=== PATIENT | male | born 1970 | race Caucasian/White ===

== ENCOUNTER → 2024-01-09 10:19 | Outpatient (REF) | payer OTHER, SELFPAY | LOC: MRI 3T 10:19 | PROVIDERS: ATTENDING PHYSICIAN Specialist; FAMILY PHYSICIAN Internal Medicine | DX: C61 Malignant neoplasm of prostate (principal) | CPT/HCPCS: 72197; A9575 ==

== ENCOUNTER 2024-02-01 11:12 | Outpatient (RCR) | payer OTHER, SELFPAY | END 2024-02-01 23:59 | disposition home or self-care (01) | LOC: RPT 11:12 | PROVIDERS: ATTENDING PHYSICIAN Specialist; FAMILY PHYSICIAN Internal Medicine | DX: C61 Malignant neoplasm of prostate (principal); Z73.6 Limitation of activities due to disability | CPT/HCPCS: 97161; 97530 ==

== ENCOUNTER 2024-02-22 06:06 | Day surgery (SDC) | payer OTHER, SELFPAY ==
--- NOTE | 2024-02-07 12:07 | CM ---
Patient is scheduled for a Robotic Prostatectomy on 02/22/24. Spoke with patient prior to surgery via telephone to complete case management assessment and assess for discharge planning needs. Patient reports that he lives with his and two
children in a two story home. There are no steps to enter and a flight of steps to the second floor. He currently functions independently. He has no DME. He has had VN services through [facility] in the past. He has a prescription plan and uses [facility] in
[place].
PCP is Afshan Freed
Discussed discharge plans. Patient plans to return home at discharge. Discussed possible need for VN services and reviewed options. Patient states that if services are needed, he selects [facility]N.
[place] text sent to VN liaison, Desiree Turner, alerting her to surgery date and possible need for VN.
[2024-02-09 08:19] VITALS: BMI 32.9
[2024-02-09 08:59] LABS: Hematocrit 42.1 % (39.0-52.0); Hemoglobin 14.6 g/dL (13.0-18.0); Mean Corp Hgb Conc. 34.7 g/dL (33.0-37.0); Mean Corpuscular Hgb 30.1 pg (27.0-31.0); Mean Corpuscular Volume 86.8 fL (80.0-94.0); Mean Platelet Volume 10.5 fL (7.4-10.4); Platelet Count 229 10^3/uL (130-400); Red Blood Cell Count 4.85 10^6/uL (4.70-6.10); Red Cell Dist. Width 11.3 % (11.5-14.5); White Blood Cell Count 8.4 10^3/uL (4.8-10.8)
[2024-02-09 09:08] LABS: INR 0.95; PT 12.7 Sec (11.4-14.6)
[2024-02-09 09:09] LABS: APTT 25.4 Sec (23.4-35.0)
[2024-02-09 09:20] LABS: Urine Albumin Negative (Neg - Trace); Urine Bilirubin Negative (Negative); Urine Character Clear (Clear); Urine Color Yellow; Urine Glucose Negative (Negative); Urine Ketone Negative (Negative); Urine Leukocyte Negative (Negative); Urine Nitrite Negative (Negative); Urine Occult Blood Negative (Negative); Urine Urobilinogen Negative (Neg - 1+)
[2024-02-09 10:45] LABS: Blood Urea Nitrogen 21 mg/dl (9-20); Calcium 9.4 mg/dl (8.4-10.2); Carbon Dioxide 28 mmol/L (22-30); Chloride 103 mmol/L (98-107); Estimated Creatinine Clearance 118 ml/min; Glucose 85 mg/dl (70-99); Potassium 4.5 mmol/L (3.5-5.1); Sodium 138 mmol/L (135-145); eGFR > 60.00
[2024-02-22] VITALS (16 sets, daily range): BP systolic 107–149; BP diastolic 1–91; BMI 32.9
[2024-02-22] MEDS: NORMOSOL-R 1000 IV (06:42)
[2024-02-22] MEDS: NEOMYCIN ENEMA 1 BOTTLE RECTAL (06:43)
[2024-02-22 12:13] LABS: Hematocrit 42.2 % (39.0-52.0); Hemoglobin 14.5 g/dL (13.0-18.0)
[2024-02-22 12:36] LABS: Blood Urea Nitrogen 16 mg/dl (9-20); Calcium 8.4 mg/dl (8.4-10.2); Carbon Dioxide 23 mmol/L (22-30); Chloride 105 mmol/L (98-107); Estimated Creatinine Clearance 116 ml/min; Glucose 151 mg/dl (70-99); Potassium 4.7 mmol/L (3.5-5.1); Sodium 135 mmol/L (135-145); eGFR > 60.00
[2024-02-22] MEDS: TYLENOL 650 MG PO ×3 (13:18→23:13)
[2024-02-22] MEDS: COLACE PO (15:46)
[2024-02-22] MEDS: POLYSPORIN/DOUBLE ANTIBIOTIC TOPICAL (15:46)
--- NOTE | 2024-02-22 16:33 | PTCARENOTE ---
1515: Patient arrived to 2S. Full head to toe assessment completed. 5 incisions on abdomen. Patient on bedrest until 1800. Ac catheter in place. Call kidd within reach and bed in lowest position.
[2024-02-22] MEDS: TORADOL 15 MG IV ×2 (17:12→23:14)
[2024-02-22] MEDS: COLACE 100 MG PO (17:13)
[2024-02-22] MEDS: VALIUM INJECTION 5 MG IV (18:25)
[2024-02-22] MEDS: POLYSPORIN/DOUBLE ANTIBIOTIC 1 APPLIC TOPICAL (21:11)
[2024-02-23 03:41] VITALS: BP 120/68
[2024-02-23] MEDS: TORADOL 15 MG IV (05:53)
--- NOTE | 2024-02-23 06:02 | PTCARENOTE ---
Leg bag teaching reviewed before HS. Pt verbalizes understanding. Switched over to leg bag per orders, pt verbalizes understanding. Reports pain as tolerable. Thigh high SCDs removed at this time to accommodate leg bag. Plan of care ongoing.
--- NOTE | 2024-02-23 06:39 | W.PN.URO.CBU ---
Today's Communication / Plan
-
discharge
Assessment / Plan
-
stable
Diagnosis
-
Date of Service: February 23, 2024
-
Patient Diagnosis: prostate cancer s/p prostatectomy
Post Op Day: 1
Subjective
-
'pain has been great'
Objective
-
Vital Signs
Temp Pulse Resp BP Pulse Ox
98.1 F 69 16 120/68 97
02/23/24 03:41 02/23/24 03:41 02/23/24 03:41 02/23/24 03:41 02/23/24 03:41
Intake and Output
02/21/24 02/22/24 02/23/24
06:59 06:59 06:59
Intake Total 1360 / 1360
Output Total 2625 / 2625
Balance -1265 / -1265
Intake:
Oral fluids 960 / 960
IV fluids (Total) 400 / 400
Normosol 400 / 400
Output:
Urine, Ac 2625 / 2625
labs - pending
Physical Exam
-
General - well developed, well nourished, no acute distress
Chest - clear bilaterally
Abdomen - soft, no distention
Genitalia - Ac with yellow urine
Skin - warm & dry with no rash
Neuro - AOx3, no motor deficits
Extremities - no clubbing, no cyanosis, no edema
Dressings - clean, dry, intact
[2024-02-23 06:40] LABS: Hematocrit 37.6 % (39.0-52.0); Hemoglobin 12.9 g/dL (13.0-18.0); Mean Corp Hgb Conc. 34.3 g/dL (33.0-37.0); Mean Corpuscular Hgb 30.2 pg (27.0-31.0); Mean Corpuscular Volume 88.1 fL (80.0-94.0); Mean Platelet Volume 10.3 fL (7.4-10.4); Platelet Count 207 10^3/uL (130-400); Red Blood Cell Count 4.27 10^6/uL (4.70-6.10); Red Cell Dist. Width 11.4 % (11.5-14.5); White Blood Cell Count 9.4 10^3/uL (4.8-10.8)
[2024-02-23 07:06] LABS: Blood Urea Nitrogen 15 mg/dl (9-20); Calcium 8.9 mg/dl (8.4-10.2); Carbon Dioxide 28 mmol/L (22-30); Chloride 106 mmol/L (98-107); Estimated Creatinine Clearance 105 ml/min; Glucose 94 mg/dl (70-99); Potassium 4.4 mmol/L (3.5-5.1); Sodium 139 mmol/L (135-145); eGFR > 60.00
[2024-02-23 07:39] VITALS: BP 147/84
[2024-02-23] MEDS: COLACE 100 MG PO (09:02)
[2024-02-23] MEDS: TRICOR 48 MG PO (09:02)
[2024-02-23] MEDS: TYLENOL 650 MG PO (09:02)
[2024-02-23] MEDS: ORETIC 25 MG PO (09:04)
[2024-02-23] MEDS: POLYSPORIN/DOUBLE ANTIBIOTIC 1 APPLIC TOPICAL (09:04)
--- NOTE | 2024-02-23 10:02 | VNURNOTE ---
Home Health Liaison met with patient at 0900 to discuss [facility] nurse visits, schedule and homebound status. Patient is agreeable and understands that visits at home will be 2-3 x per week to assess and teach medical management and catheter care.
[facility] brochure provided with contact information. Patient is aware that [facility] will contact him for start of care in 1-2 days after discharge from .
[facility] referral completed in [facility].
--- NOTE | 2024-02-23 10:25 | CM ---
Reviewed the chart notes and spoke with the patient at the bedsides. The patient resides with his spouse in a two story home with no steps to enter. The patient reports no DME/VN/SNF in the past. The patient confirmed his pharmacy of choice is
the [facility] [address] [facility]. VN referral was sent previously through [facility] and was accepted. CM continues to be available to patient/family and is monitoring medical plan for needs at discharge.
Plan: Discharge to home today with VN services.
== END 2024-02-23 10:35 | disposition home or self-care (01) ==
LOC: SDS 06:06
PROVIDERS: ATTENDING PHYSICIAN Specialist; FAMILY PHYSICIAN Internal Medicine
DX: C61 Malignant neoplasm of prostate (principal)
CPT/HCPCS: 55866; 38571; 88305; 88307; 88309; 36415; 80048; 81003; 85014; 85018; 85027; 85610; 85730; 87070; 88344; 93005

== ENCOUNTER 2024-03-03 00:18 | Emergency (ER) | payer OTHER, SELFPAY ==
[2024-03-03 00:21] VITALS: BP 145/86; BMI 32.1
--- NOTE | 2024-03-03 01:14 | ED.GENMED ---
History of Present Illness
General
Chief Complaint: Male Genito-Urinary Symptoms
Source: patient and spouse
Time Seen by Provider: 03/03/24 00:39
Travel History
Have you had any contact with someone who has COVID-19?: No
Do you have any symptoms of coronavirus? Fever > 100 degrees, chills, cough, shortness of breath, sore throat, loss of taste or smell, muscle aches, or headache?: No
History of Present Illness
History of Present Illness:
54-year-old male presents emergency department with complaints of difficulty urinating since approximately 4 PM. Patient recently had prostate surgery and had a Ac catheter in place for 9 days. It was removed today, and since that time he has
noted the gradual onset of suprapubic pain and pressure. He denies flank pain, fever, chills, nausea, vomiting, chest pain, shortness of breath. He noted blood in his urine earlier today but it then cleared.
Past History
Past History
ED Past Medical History: HTN
ED Past Surgical History: Urological
Social History
Tobacco: Former smoker
Alcohol: Occasional
Drug: None
Personal:
Living: with family
Family History
Family History: Negative Diabetes, Hypertension, Early CAD, Asthma or Cancer
Phy Exam
Physical Exam
Physical Exam:
GENERAL: Alert , in no apparent distress
EYE: pupils equal and reactive
NECK: Supple, no significant adenopathy.
ENT: o/p clr, mmm.
CARDIAC: Regular rate and rhythm .
LUNGS: Clear breath sounds bilaterally, no acute respiratory distress, no wheezes/rales/rhonchi
ABDOMEN: Soft, without focal tenderness, no r/g, no cvat, incisions c/d/i with steristrips in place
NEUROLOGICAL: Alert and oriented, no focal neuro deficits
SKIN: Warm and dry, skin intact.
MUSCULOSKELETAL: No edema, well perfused.
PSYCH: Normal and appropriate interaction.
: Ac in place, no bleeding/lesions noted
Course
Orders/Labs/Results
Orders:
Orders
03/03/24 01:13
Urinalysis Reflex To Culture Urgent
Vital Signs
Initial and Last Documented VS:
Initial Vital Signs
Temp Pulse Resp BP Pulse Ox
98.5 F 74 16 145/86 98
03/03/24 00:21 03/03/24 00:21 03/03/24 00:21 03/03/24 00:21 03/03/24 00:21
Last Documented Vital Signs
Temp Pulse Resp BP Pulse Ox
98.5 F 74 16 145/86 98
03/03/24 00:21 03/03/24 00:21 03/03/24 00:21 03/03/24 00:21 03/03/24 00:21
*Critical Care Note
Total Time (30-74mins, 75-104mins- exclusive of procedures): Not Applicable
Update Note
Update Note:
Patient presents to the Emergency Department with suprapubic discomfort and difficulty urinating
Number and Complexity of Problems Addressed at the Encounter
� Chronic conditions affecting care:
� Acute Exacerbation and/or Progression of Chronic Illness:
� Differential Diagnosis includes: But not limited to urinary retention related to recent catheter, retention related to blood clots, etc.
Amount and/or Complexity of Data to be Reviewed and Analyzed
� I performed an independent evaluation of and my interpretation is:
EKG:
CT:
Xrays:
Laboratory Studies:
Other:
� Review of other/old records reveals:
� Clinical information was obtained by an independent historian: who is at bedside
� Prescriptions/Medications Considered but not given:
� Further testing considered but not performed:
Risk of Complications and/or Morbidity or Mortality of Patient Management
� Social determinants of health affecting care:
� Discussion with other providers (PCP, Hospitalists, Consultants, etc):
� Escalation of care including admission/observation vs risk of discharge considered: 1:16 AM Ac catheter placed, approximately 1500 mL of urine yellow drained, patient feeling significantly better without complaints, smiling.
Understands that he will go home with catheter and need to follow-up with urology on Tuesday for further management.
ED Attending Note
-
Portions of this chart may have been created with voice recognition software.� Occasional wrong word or��sound alike� substitutions may have occurred due to the inherent limitations of voice recognition software.
Discharge Plan
Departure
Patient Disposition: Home (Routine Discharge)
Date of Disposition: 03/03/24
Time of Disposition: 01:14
Patient with high blood pressure during this ER visit?: Yes
Condition: Good
Discharge Problem:
Acute urinary retention
Instructions: How to Care for Your Ac Catheter, Male, Urinary Retention (DC), BLOOD PRESSURE
Prescriptions:
No Action
hydrochlorothiazide 25 mg Tablet
25 mg PO DAILY
fenofibrate nanocrystallized 48 mg Tablet
48 mg PO DAILY
naproxen sodium [Aleve] 220 mg capsule
440 mg PO BID PRN (Reason: Pain) Qty: 1 0RF
tramadol 50 mg tablet
50 mg PO TID PRN (Reason: severe pain) Qty: 10 0RF
Referrals:
Anderson Segura MD [Active] - Follow up in 2-3 days
Activity Restrictions/Additional Instructions:
IF YOU DEVELOP FEVER, CHILLS, BACK PAIN, ABDOMINAL PAIN, BLEEDING, YOUR CATHETER DOES NOT DRAIN, OR OTHER WORRISOME SIGNS, PLEASE RETURN TO THE ER IMMEDIATELY.
Interventions
Interventions:
*Risk Screen - Suicide Last Done: 03/03/24 00:21
*Neglect/Abuse Screening Last Done: 03/03/24 00:21
ED- Fall Risk Assessment Last Done: 03/03/24 00:21
*ED COVID-19 Vaccine History Last Done: 03/03/24 00:46
ED-Male Genitourinary Assessment Last Done: 03/03/24 01:00
Discharge Date and Time
Print Language: INDONESIAN
[2024-03-03 01:43] LABS: Urine Albumin Trace (Neg - Trace); Urine Bilirubin Negative (Negative); Urine Character Clear (Clear); Urine Glucose Negative (Negative); Urine Ketone Negative (Negative); Urine Leukocyte Negative (Negative); Urine Nitrite Negative (Negative); Urine Occult Blood 4+ (Negative); Urine Urobilinogen Negative (Neg - 1+)
[2024-03-03 01:45] LABS: Urine Color Yellow
[2024-03-03 01:53] LABS: Urine Mucus Many
[2024-03-03 01:54] LABS: Urine Amorphous Seen; Urine Red Blood Cell 16-20 /HPF (0-2); Urine White Cell 0-2 /HPF (0-5)
[2024-03-03 01:57] LABS: Urine Bacteria Moderate (Negative); Urine Calcium Oxalate Crystals Seen; Urine Squamous Cell 16-20 /LPF (Few)
== END 2024-03-03 01:25 | disposition home or self-care (01) ==
LOC: EMR 00:18
PROVIDERS: EMERGENCY PHYSICIAN Emergency Medicine
DX: R33.9 Retention of urine, unspecified (principal); R31.9 Hematuria, unspecified; R10.2 Pelvic and perineal pain; I10 Essential (primary) hypertension; Z98.890 Other specified postprocedural states; Z87.891 Personal history of nicotine dependence
CPT/HCPCS: 99284; 51702; 81003; 81015; 87086

== ENCOUNTER 2024-03-07 22:46 | Emergency (ER) | payer OTHER, SELFPAY ==
[2024-03-07 22:46] VITALS: BMI 32.7
[2024-03-07 22:54] VITALS: BP 133/94
[2024-03-07 23:38] VITALS: BP 140/82
--- NOTE | 2024-03-07 23:54 | ED.GENMED ---
History of Present Illness
<MERRITT Jauregui - Last Filed: 03/08/24 02:29>
General
Chief Complaint: Male Genito-Urinary Symptoms
Time Seen by Provider: 03/07/24 23:42
Travel History
Have you had any contact with someone who has COVID-19?: No
Do you have any symptoms of coronavirus? Fever > 100 degrees, chills, cough, shortness of breath, sore throat, loss of taste or smell, muscle aches, or headache?: No
History of Present Illness
History of Present Illness:
This is a 54 yo male PMH prostate CA s/p prostate surgery, HTN, HLD presenting for urinary retention. He had prostate surgery 2 weeks ago and has been using a urinary catheter for most days since the procedure. He had a catheter placed on 03/01 and
removed it yesterday morning. He was able to urinate without the catheter for most of the day, but was no longer able to do so at 8pm. He now describes suprapubic pain and a feeling of fullness.
Bladder scan upon arrival demonstrated volume of 468ml.
Past History
<MERRITT Jauregui - Last Filed: 03/08/24 02:29>
Past History
ED Past Medical History: HTN
ED Past Surgical History: Urological
Social History
Tobacco: Former smoker
Alcohol: Occasional
Drug: None
Personal:
Living: with family
Family History
Family History: Negative Diabetes, Hypertension, Early CAD, Asthma or Cancer
Phy Exam
<MERRITT Jauregui - Last Filed: 03/08/24 02:29>
General Physical Exam
General Presentation: well appearing
General age: appears stated age
General Skin: warm and dry
General Habitus: normal
General Mental: alert
Cardiovascular Exam
Cardiovascular Exam: regular rate/rhythm, no edema, no gallop and no murmur
Pulmonary Exam
Pulmonary Exam: lungs clear
Gastrointestinal Exam
Gastrointestinal Exam: other (suprapubic tenderness)
Neurological Exam
Neurological Exam: alert and oriented x3
Psychiatric Exam
Psychiatric Exam: normal mood/affect
Course
<Antolin Irizarry STPA - Last Filed: 03/08/24 02:29>
Orders/Labs/Results
Orders:
Orders
03/07/24 23:57
Lidocaine 2% [Lidocaine Uro-Jet 2%] 1 syringe .ROUTE .STK-MED ONE
03/08/24 00:01
Lidocaine 2% [Lidocaine Uro-Jet 2%] 1 syringe TOPICAL NOW STA
03/08/24 00:19
Doxycycline [Vibramycin] 100 mg PO NOW STA
03/08/24 00:42
Urine Culture Urgent
MYRA Source: Urine
Specimen Description:
Obtained by: Indwelling Catheter
Date Specimen was Collected: 03/08/24
Time Specimen was Collected: 00:41
Vital Signs
Initial and Last Documented VS:
Initial Vital Signs
Temp Pulse Resp BP Pulse Ox
98.0 F 78 18 133/94 99
03/07/24 22:54 03/07/24 22:54 03/07/24 22:54 03/07/24 22:54 03/07/24 22:54
Last Documented Vital Signs
Temp Pulse Resp BP Pulse Ox
98.0 F 78 18 123/86 99
03/07/24 22:54 03/07/24 22:54 03/07/24 22:54 03/08/24 00:50 03/07/24 22:54
<Clarice Moreno DO - Last Filed: 03/08/24 00:37>
Orders/Labs/Results
Orders:
Orders
03/07/24 23:57
Lidocaine 2% [Lidocaine Uro-Jet 2%] 1 syringe .ROUTE .S*Bio ONE
03/08/24 00:01
Lidocaine 2% [Lidocaine Uro-Jet 2%] 1 syringe TOPICAL NOW STA
03/08/24 00:19
Doxycycline [Vibramycin] 100 mg PO NOW STA
03/08/24 00:42
Urine Culture Urgent
MYRA Source: Urine
Specimen Description:
Obtained by: Indwelling Catheter
Date Specimen was Collected: 03/08/24
Time Specimen was Collected: 00:41
Vital Signs
Initial and Last Documented VS:
Initial Vital Signs
Temp Pulse Resp BP Pulse Ox
98.0 F 78 18 133/94 99
03/07/24 22:54 03/07/24 22:54 03/07/24 22:54 03/07/24 22:54 03/07/24 22:54
Last Documented Vital Signs
Temp Pulse Resp BP Pulse Ox
98.0 F 78 18 123/86 99
03/07/24 22:54 03/07/24 22:54 03/07/24 22:54 03/08/24 00:50 03/07/24 22:54
<MERRITT Jauregui - Last Filed: 03/08/24 02:29>
MDM/Problems Addressed
Differential Diagnosis Includes:
Acute urinary retention
MDM/Problems Addressed:
Patient expressed pain and fullness subsided immediately upon urinary catheter insertion.
Patient given 1 time dose of doxycycline
<MERRITT Jauregui - Last Filed: 03/08/24 02:29>
*Critical Care Note
Total Time (30-74mins, 75-104mins- exclusive of procedures): Not Applicable
<Clarice Moreno DO - Last Filed: 03/08/24 00:37>
*Pulse Oximetry
Patient hypoxic: no
ED Attending Note
<MERRITT Jauregui - Last Filed: 03/08/24 02:29>
-
Portions of this chart may have been created with voice recognition software.� Occasional wrong word or��sound alike� substitutions may have occurred due to the inherent limitations of voice recognition software.
<Clarice Moreno DO - Last Filed: 03/08/24 00:37>
ED Attending Note
Patient seen and examined by attending physician: Yes
I performed the substantive portion of visit, reviewed & personally made and approve the management plan that is documented in note by myself or TODD.: Yes
I performed a history and physical exam of patient and discussed management with resident, I reviewed resident's note and agree with documented findings and plan of care.: Yes
ED Attending Note:
This is a 54-year-old gentleman with history of prostate cancer underwent prostate surgery with Dr. Anderson Segura 2 weeks ago. Ac catheter removed March 02 and initially able to void uneventfully but developed acute urinary retention requiring
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 He has been voiding well throughout the day and had follow-up appointment this afternoon at 3 PM with
reassuring postvoid bladder scan.
He was started on Flomax 0.4 on Tuesday, 2 days ago.
Tonight around 8:30 PM he developed marked difficulty urinating with progressive suprapubic discomfort, pressure.
He has not had a fever nor chills. No dysuria nor hematuria. No back pain or flank pain.
GENERAL: 54-year-old gentleman appears his stated age, awake and alert, pleasant, appears in mild distress.
EYE: anicteric
NECK: Supple, nontender
ENT: oral mucosa is moist.
CARDIAC: Regular rate and rhythm. no murmur.
LUNGS: No respiratory distress.
ABDOMEN: Soft, nondistended, mild to moderate tenderness suprapubic region over palpably mildly distended bladder.
NEUROLOGICAL: Alert and oriented x3, no focal neuro deficits. Gait is valdivia and steady.
SKIN: Warm and dry, normal color, skin intact. No rash.
MUSCULOSKELETAL: No C/C/E. peripheral pulses are full and equal b/l. No palpable tenderness.
PSYCH: Normal and appropriate interaction.
Bladder scan by nursing staff reveals nearly 500 cc in the bladder.
Patient has tremendous urge but inability to void consistent with recurrent urinary retention.
Will plan for Ac catheter reinsertion.
03/08/2024 00:15 AM
Ac catheter inserted without difficulty by PA student/RN supervision.
Patient reports complete relief of discomfort after catheter inserted which is currently draining pale yellow clear urine.
Records reviewed. Urine culture sent on March 03 was negative for infection.
Patient has had no UTI symptoms but due to recurrent instrumentation will give a one-time dose of doxycycline for infection prevention and will send urine culture for completeness sake.
Will discharge to home with Ac catheter in place with plan for follow-up with urology early next week.
Continue Flomax 0.4 mg nightly.
Discharge Plan
Departure
Patient Disposition: Home (Routine Discharge)
Date of Disposition: 03/08/24
Time of Disposition: 00:36
Patient with high blood pressure during this ER visit?: No
Condition: Good
Discharge Problem:
Acute recurrent urinary retention
Instructions: How to Care for Your Ac Catheter, Male, Urinary Retention (DC)
Prescriptions:
No Action
hydrochlorothiazide 25 mg Tablet
25 mg PO DAILY
fenofibrate nanocrystallized 48 mg Tablet
48 mg PO DAILY
naproxen sodium [Aleve] 220 mg capsule
440 mg PO BID PRN (Reason: Pain) Qty: 1 0RF
tramadol 50 mg tablet
50 mg PO TID PRN (Reason: severe pain) Qty: 10 0RF
Referrals:
Anderson Segura MD [Active] - Call in 1-3 days for appt
UNKNOWN - PT DOES,NOT KNOW [Unknown Provider] -
Interventions
Interventions:
*Risk Screen - Suicide Last Done: 03/07/24 22:54
*General Assessment Last Done: 03/07/24 22:54
*Neglect/Abuse Screening Last Done: 03/07/24 22:54
ED- Fall Risk Assessment Last Done: 03/08/24 00:59
*ED COVID-19 Vaccine History Last Done: 03/07/24 23:38
*Nursing Disposition Last Done: 03/08/24 00:59
ED-Male Genitourinary Assessment Last Done: 03/07/24 23:38
Discharge Date and Time
Discharge Date/Time: 03/08/24 01:01
Print Language: ALBANIAN
[2024-03-08] VITALS: BP 140/94
[2024-03-08] MEDS: LIDOCAINE URO-JET 2% 1 SYRINGE TOPICAL (00:01)
[2024-03-08] MEDS: VIBRAMYCIN 100 MG PO (00:37)
[2024-03-08 00:50] VITALS: BP 123/86
== END 2024-03-08 01:01 | disposition home or self-care (01) ==
LOC: EMR 22:46
PROVIDERS: EMERGENCY PHYSICIAN Emergency Medicine; FAMILY PHYSICIAN Internal Medicine
DX: R33.9 Retention of urine, unspecified (principal); I10 Essential (primary) hypertension; E78.00 Pure hypercholesterolemia, unspecified; Z82.49 Family history of ischemic heart disease and other diseases of the circulatory system; Z85.46 Personal history of malignant neoplasm of prostate; Z87.891 Personal history of nicotine dependence
CPT/HCPCS: 99282; 51702; 87086

== ENCOUNTER 2024-03-19 07:13 | Outpatient (RCR) | payer OTHER, SELFPAY | END 2024-03-19 23:59 | disposition home or self-care (01) | LOC: RPT 07:13 | PROVIDERS: ATTENDING PHYSICIAN Specialist; FAMILY PHYSICIAN Internal Medicine | DX: M62.81 Muscle weakness (generalized) (principal); C61 Malignant neoplasm of prostate; Z73.6 Limitation of activities due to disability | CPT/HCPCS: 97110; 97140; 97164; 97530 ==

== ENCOUNTER → 2024-04-02 06:35 | Day surgery (SDC) | payer OTHER, SELFPAY | LOC: GI 06:35 | PROVIDERS: ATTENDING PHYSICIAN Internal Medicine | DX: Z12.11 Encounter for screening for malignant neoplasm of colon (principal); K64.9 Unspecified hemorrhoids; K57.30 Diverticulosis of large intestine without perforation or abscess without bleeding; Z86.010 Personal history of colon polyps | CPT/HCPCS: G0105 ==